=== PATIENT | female | born 1985 | race Hispanic/Latino ===

== ENCOUNTER 2017-04-22 05:39 | Outpatient (CLI) | payer OTHER ==
[~2017-04-22] VITALS: Ht 162.6 cm; Wt 58.2 kg
[~2017-04-22 05:39] MED LIST: BIRTH CONTROL PATCH; IBP600T1 PO; IBUP-1773 PO; PREN-115 PO; PREN1TAB14 PO; PREN1TAB71 PO
== END 2017-04-22 13:01 ==
LOC: PREOP 05:39
PROVIDERS: ATTEND Surgery
DX: Z01.818 Encounter for other preprocedural examination (principal); K62.5 Hemorrhage of anus and rectum; R19.4 Change in bowel habit

== ENCOUNTER 2017-05-31 02:24 | Emergency (ER) | payer OTHER ==
[~2017-05-31] VITALS: Ht 165.1 cm; Wt 58.1 kg
[2017-05-31] MEDS ORDERED: methylPREDNISolone 80 MG/ML (DEPO MEDROL) VIAL IM ONE (03:00)
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
[2017-05-31] MEDS ORDERED: EPIN0.3P3 IJ (03:05)
[2017-05-31] MEDS ORDERED: FAMO-119 PO (03:05)
[2017-05-31] MEDS ORDERED: PRD20T PO (03:05)
[2017-05-31] MEDS ORDERED: predniSONE 20 MG TAB PO ONE (03:15)
[2017-05-31 03:24] VITALS: BP 0/0
== END 2017-05-31 03:24 | disposition home or self-care (01) ==
LOC: EDUNIT# 02:24 → ER 02:26
DX: L50.8 Other urticaria (principal); G43.909 Migraine, unspecified, not intractable, without status migrainosus; F32.9 Major depressive disorder, single episode, unspecified; Z80.59 Family history of malignant neoplasm of other urinary tract organ
CPT/HCPCS: 99283

== ENCOUNTER 2017-07-22 05:34 | Outpatient (CLI) | payer OTHER ==
[~2017-07-22] VITALS: Ht 165.1 cm; Wt 58.1 kg
[~2017-07-22 05:34] MED LIST changes: +EPIN0.3P3 IJ; +FAMO-119 PO; +PRD20T PO
== END 2017-07-22 14:42 ==
LOC: PREOP 05:34
PROVIDERS: ATTEND Surgery
DX: Z01.818 Encounter for other preprocedural examination (principal); K62.5 Hemorrhage of anus and rectum; R19.4 Change in bowel habit; Z80.0 Family history of malignant neoplasm of digestive organs

== ENCOUNTER 2017-07-29 07:39 | Day surgery (SDC) | payer OTHER ==
--- NOTE | 2017-05-16 07:57 | Conscious Sedation/ASA ---
Conscious Sedation Pre-Proced Time Reviewed: 07:57 ASA Class: 2 Airway Mallampati Classification: ([place] appropriate class) I. II. III, IV Lungs Heart ASA score ASA 1: a normal healthy patient ASA 2: a patient with a mild systemic disease (mid diabetes, controlled hypertension, obesity ASA 3: a patient with a severe systemic disease that limits activity (angina , COPD, prior Myocardial infarction) ASA 4: a patient with an incapacitating disease that is a constant threat to life (CHF, renal failure) ASA 5: a moribund patient not expected to survive 24 hrs. (ruptured aneurysm) ASA 6: a declared brain patient whose organs are being harvested. For emergent operations, add the letter E after the classification Grade 1 Sedation Plan: Discussed options with patient/fam Note The patient is an appropriate candidate to undergo the planned procedure, sedation, and anesthesia. The patient immediately re-assessed prior to indication. JANICE HERNÁNDEZ MD May 16, 2017 7:57 am
--- NOTE | 2017-05-16 07:57 | History & Physicial ---
History of Present Illness History of Present Illness Reason for visit/HPI to undergo colonoscopy in view of the change in bowel habits and a family history of colon cancer Date of Admission 05/16/17 Date Seen by Provider: May 16, 2017 Time Seen by Provider: 07:55 I consulted on this patient on 05/16/17 07:54 Attending Physician Janice Hernández MD Admitting Physician Ml German DO Consult Allergies and Home Medications Allergies Coded Allergies: No Known Drug Allergies (Unverified , 04/22/17) Home Medications No Active Prescriptions or Reported Meds Past Wzshnaa-Qjsbmf-Nthwap Hx Patient Social History Marrital Status: Employed/Student: employed Smoking Status: Never a Smoker Recent Hopitalizations: No Immunizations Up To Date Tetanus Booster (TDap): Less than 5yrs Pediatric: No Date of Influenza Vaccine: Mar 10, 2012 Seasonal Allergies Seasonal Allergies: Yes Surgeries No Respiratory No Cardiovascular No Neurological No Reproductive System Hx Reproductive Disorders: No Sexually Transmitted Disease: No HIV/AIDS: No Gastrointestinal Chronic Constipation Musculoskeletal No Endocrine History of Endocrine Disorders: No Cancer No Integumentary History of Skin or Integumenta: No Blood Transfusions Adverse Reaction to a Blood Tr: No Family Medical History Significant Family History: Cancer Family Hx: Diabetes mellitus Maternal grandmother FH: ovarian cancer 19 MOTHER FH: prostate cancer 19 FATHER Constitutional: no symptoms reported EENTM: no symptoms reported Respiratory: no symptoms reported Cardiovascular: no symptoms reported Gastrointestinal: see HPI Genitourinary: no symptoms reported Musculoskeletal: no symptoms reported Skin: no symptoms reported Psychiatric/Neurological: No Symptoms Reported Physical Exam Vital Signs Capillary Refill : General Appearance: No Apparent Distress HEENT: Normal ENT Inspection Neck: Normal Inspection Respiratory: Lungs Clear Cardiovascular: Regular Rate, Rhythm Gastrointestinal: Non Tender, Soft Rectal: Deferred Extremity: Normal Inspection Neurologic/Psychiatric: Alert, Oriented x3 Skin: Warm/Dry Assessment/Plan Assessment and Plan lady with a new change in her bowel habits. Family history of colon cancer in her father. For colonoscopy. Problems: JANICE HERNÁNDEZ MD May 16, 2017 7:57 am
[~2017-07-29] VITALS: Ht 165.1 cm; Wt 58.1 kg
[2017-07-29] MEDS ORDERED: NS IV 500 ML 500 ML IV PRN (07:54)
[2017-07-29] MEDS ORDERED: NS IV 500 ML 500 ML ONE (08:14)
[2017-07-29 08:19] VITALS: BP 109/70
[2017-07-29] MEDS ORDERED: MIDAZOLAM 2 MG/2 ML (VERSED) VIAL ONE ×3 (09:23→09:24)
[2017-07-29] MEDS ORDERED: fentaNYL INJECTION 100 MCG/2 ML AMP ONE (09:24)
--- NOTE | 2017-07-29 09:30 | History & Physicial ---
History of Present Illness History of Present Illness Reason for visit/HPI to undergo colonoscopy in view of the change in bowel habits and a family history of colon cancer Date of Admission 07/29/17 Date Seen by Provider: Jul 29, 2017 Time Seen by Provider: 09:29 I consulted on this patient on 07/29/17 09:28 Attending Physician Janice Loco MD Admitting Physician Mary Beth Victoria MD Consult Allergies and Home Medications Allergies Coded Allergies: No Known Drug Allergies (Unverified , 04/22/17) Home Medications No Active Prescriptions or Reported Meds Past [place]-Nqszdj Hx Patient Social History Marrital Status: Employed/Student: employed Alcohol Use: Denies Use Recreational Drug Use: No Smoking Status: Never a Smoker Recent Foreign Travel: No Contact w/other who traveled: No Recent Hopitalizations: No Immunizations Up To Date Tetanus Booster (TDap): Less than 5yrs Pediatric: No Date of Influenza Vaccine: Mar 10, 2012 Seasonal Allergies Seasonal Allergies: Yes Surgeries No Respiratory No Cardiovascular No Neurological No Headaches /Migraines Reproductive System Hx Reproductive Disorders: No Sexually Transmitted Disease: No HIV/AIDS: No Gastrointestinal Yes (RECTAL BLEEDING) Chronic Constipation Musculoskeletal No Chronic Back Pain Endocrine History of Endocrine Disorders: No HEENT Loss of Vision: Denies Hearing Impairment: Denies Cancer No Psychosocial History of Psychiatric Problem: Yes Behavioral Health Disorders: Depression Integumentary History of Skin or Integumenta: No Skin/Integumentary Disorders: Eczema Blood Transfusions History of Blood Disorders: No Adverse Reaction to a Blood Tr: No Family Medical History Significant Family History: Cancer Family Hx: Diabetes mellitus Maternal grandmother FH: ovarian cancer 19 MOTHER FH: prostate cancer 19 FATHER Constitutional: no symptoms reported EENTM: no symptoms reported Respiratory: no symptoms reported Cardiovascular: no symptoms reported Gastrointestinal: see HPI Genitourinary: no symptoms reported Musculoskeletal: no symptoms reported Skin: no symptoms reported Psychiatric/Neurological: No Symptoms Reported Physical Exam Vital Signs Vital Signs - First Documented 07/29/17 08:19 Temp 97.5 Pulse 68 Resp 18 B/P (MAP) 109/70 (83) Pulse Ox 99 O2 Delivery Room Air Capillary Refill : General Appearance: No Apparent Distress HEENT: Normal ENT Inspection Neck: Normal Inspection Respiratory: Lungs Clear Cardiovascular: Regular Rate, Rhythm Gastrointestinal: Non Tender, Soft Rectal: Deferred Extremity: Normal Inspection Neurologic/Psychiatric: Alert, Oriented x3 Skin: Warm/Dry Assessment/Plan Assessment and Plan lady with a new change in her bowel habits. Family history of colon cancer in her father. For colonoscopy. Problems: Admission Diagnosis lady with a new change in her bowel habits. Family history of colon cancer in her father. For colonoscopy. JANICE LOCO MD Jul 29, 2017 9:30 am
--- NOTE | 2017-07-29 09:30 | Conscious Sedation/ASA ---
Conscious Sedation Pre-Proced Time Reviewed: 09:05 ASA Class: 1 Airway Mallampati Classification: ([place] appropriate class) I. II. III, IV Lungs Heart ASA score ASA 1: a normal healthy patient ASA 2: a patient with a mild systemic disease (mid diabetes, controlled hypertension, obesity ASA 3: a patient with a severe systemic disease that limits activity (angina , COPD, prior Myocardial infarction) ASA 4: a patient with an incapacitating disease that is a constant threat to life (CHF, renal failure) ASA 5: a moribund patient not expected to survive 24 hrs. (ruptured aneurysm) ASA 6: a declared brain patient whose organs are being harvested. For emergent operations, add the letter E after the classification Grade 1 Sedation Plan: Discussed options with patient/fam Note The patient is an appropriate candidate to undergo the planned procedure, sedation, and anesthesia. The patient immediately re-assessed prior to indication. JANICE HERNÁNDEZ MD Jul 29, 2017 9:30 am
[2017-07-29] MEDS: fentaNYL INJECTION 100 MCG/2 ML AMP IVP PRN ×2 (09:33→09:40)
[2017-07-29] MEDS: MIDAZOLAM 2 MG/2 ML (VERSED) VIAL IVP PRN ×3 (09:34→09:43)
--- NOTE | 2017-07-29 09:56 | Endo Procedure Record ---
Endo Procedure Report Date of Procedure Last Colonoscopy: No Jul 29, 2017 Surgeon (s) JANICE HERNÁNDEZ MD Post Procedure/Op Diagnosis Hemorrhoids Procedure Performed Colonoscopy to cecum Description of Procedure Anesthesia Type: Conscious Sedation Specimen(s) collected/removed none Description of the Procedure Indication for the procedure: This lady came in for colonoscopy to investigate rectal bleeding, change in bowel habits and on the basis of a family history of colon cancer. Informed consent was obtained after reviewing the procedure in detail. Description of the procedure: She was placed in left lateral decub disposition and her vital signs were monitored. Conscious sedation was achieved using Versed and fentanyl. Examination of the perianal area revealed external hemorrhoids. Digital examination was otherwise unremarkable. The colonoscope was then introduced into the rectum and advanced all the way up to the cecum The quality of bowel preparation was reasonable The scope was then withdrawn slowly and the mucosa examined in a systematic fashion Finding: Internal hemorrhoids, the source of bleeding. No polyps were found She tolerated the procedure well and was taken back to the nursing area in a stable condition. Impression: Rectal bleeding due to hemorrhoids. Positive family history. Recommend screening colonoscopy in 5 years. Copies To: BHAVESH MAHAN XAVIER M MD Jul 29, 2017 9:56 am
--- NOTE | 2017-07-29 09:57 | Discharge Inst-Simple/Standard ---
Discharge Inst-Standard Discharge Medications New, Converted or Re-Newed RX: Other Patient Instructions/Follow Up Plan of Care/Instructions/FU: Screening colonoscopy in 5 years Activity as Tolerated: Yes Discharge Diet: No Restrictions JANICE HERNÁNDEZ MD Jul 29, 2017 9:57 am
[2017-07-29 10:05] VITALS: BP 116/75
[2017-07-29 10:35] VITALS: BP 106/71
[2017-07-29 10:55] VITALS: BP 106/71
== END 2017-07-29 10:55 | disposition home or self-care (01) ==
LOC: ENDO 07:39
PROVIDERS: ATTEND Surgery
DX: K64.8 Other hemorrhoids (principal); Z80.0 Family history of malignant neoplasm of digestive organs; F32.9 Major depressive disorder, single episode, unspecified
CPT/HCPCS: 84703

== ENCOUNTER 2018-06-23 14:11 | Outpatient (RCR) | payer OTHER | END 2018-09-21 | disposition home or self-care (01) | LOC: ONC 14:11 | PROVIDERS: ATTEND Nurse Practitioner Adult Health | DX: Z13.71 Encounter for nonprocreative screening for genetic disease carrier status (principal); Z80.41 Family history of malignant neoplasm of ovary; Z80.1 Family history of malignant neoplasm of trachea, bronchus and lung; Z80.0 Family history of malignant neoplasm of digestive organs | CPT/HCPCS: 99214 ==

== ENCOUNTER 2018-10-15 09:42 | Outpatient (CLI) | payer OTHER ==
[~2018-10-15] VITALS: Ht 165.1 cm; Wt 62.8 kg
[2018-10-15] MEDS ORDERED: CETI10TA17 PO (09:52)
[2018-10-15 09:54] VITALS: BP 108/72
[2018-10-15 10:48] LABS: BASOPHILS % (AUTO) 0 % (0-10); EOSINOPHILS # (AUTO) 0.1 10^3/uL (0.0-0.3); EOSINOPHILS % (AUTO) 3 % (0-10); HEMATOCRIT 41 % (35-52); HEMOGLOBIN 13.6 G/DL (11.5-16.0); LYMPHOCYTES # (AUTO) 1.7 X 10^3 (1.0-4.0); LYMPHOCYTES % (AUTO) 33 % (12-44); MEAN CORPUSCULAR HEMOGLOBIN 31 PG (25-34); MEAN CORPUSCULAR HGB CONC 33 G/DL (32-36); MEAN CORPUSCULAR VOLUME 92 FL (80-99); MEAN PLATELET VOLUME 9.6 FL (7.4-10.4); MONOCYTES # (AUTO) 0.4 X 10^3 (0.0-1.0); MONOCYTES % (AUTO) 7 % (0-12); NEUTROPHILS # (AUTO) 2.9 X 10^3 (1.8-7.8); NEUTROPHILS % (AUTO) 57 % (42-75); PLATELET COUNT 220 10^3/uL (130-400); RED CELL DISTRIBUTION WIDTH 13.9 % (10.0-14.5); WHITE BLOOD COUNT 5.1 10^3/uL (4.3-11.0)
== END 2018-10-15 12:43 | disposition home or self-care (01) ==
LOC: PREOP 09:42
PROVIDERS: ATTEND Obstetrics & Gynecology
DX: Z01.812 Encounter for preprocedural laboratory examination (principal); Z11.2 Encounter for screening for other bacterial diseases; N93.8 Other specified abnormal uterine and vaginal bleeding; N92.0 Excessive and frequent menstruation with regular cycle; R10.2 Pelvic and perineal pain; D64.9 Anemia, unspecified
CPT/HCPCS: 36415; 85025; 86850; 86900; 86901; 87081

== ENCOUNTER 2018-10-20 11:20 | Day surgery (SDC) | payer OTHER ==
[2018-10-20] VITALS (12 sets, daily range): BP systolic 85–129; BP diastolic 51–90
[~2018-10-20] VITALS: Ht 165.1 cm; Wt 62.8 kg
--- NOTE | 2018-10-20 07:41 | Discharge Instructions ---
Discharge Instructions Discharge Medications New, Converted or Re-Newed RX: RX on Chart Patient Instructions Patient Instructions: As directed Return to The Hospital For: As directed Activity & Diet Discharge Diet: No Restrictions Activity as Tolerated: No Orders-Post D/C & Referrals Follow Up Appt: Return to clinic on Saturday, October 22, 2018 at 930 a.m. for staple removal Call to make follow up appt. for patient in 4 weeks. Activity: Rest for 24 hours, than as tolerated. Wound Care: May remove Band-Aid tomorrow. Replace as desired. Keep incisions clean and dry. Wash daily with soap and water. Please call in RX to patient pharmacy. Diet: As tolerated-Clear Liquids only if nauseated. may shower or tub bathe as desired. No driving for 24 hours, no alcoholic beverages for 24 hours, and nothing per vagina (no tampons, douching, or intercourse) for 8 weeks. Patient to return to the clinic as soon as possible for: Temperature greater than 101F, Severe Pain, Foul discharge from incision or vagina, Excessive Bleeding (more than a period). JOVANNI BRITO MD October 20, 2018 07:40
--- NOTE | 2018-10-20 07:41 | Progress Note-Pre Operative ---
Pre-Operative Progress Note H&P Reviewed The H&P was reviewed, patient examined and no changes noted. Date Seen by Provider: October 20, 2018 Time Seen by Provider: 12:15 Date H&P Reviewed: October 20, 2018 Time H&P Reviewed: 12:15 Pre-Operative Diagnosis: Dysfunctional uterine bleeding/menorrhagia/chronic pelvic pain JOVANNI BRITO MD October 20, 2018 07:41
--- NOTE | 2018-10-20 07:42 | Progress Note-Post Operative ---
Post-Operative Progess Note Surgeon (s)/Conveyor Belt Operator (s) Surgeon JOVANNI BRITO MD Conveyor Belt Operator: Piero Pre-Operative Diagnosis Dysfunctional uterine bleeding/menorrhagia/chronic pelvic pain Post-Operative Diagnosis Same with pathology pending Procedure & Operative Findings Date of Procedure 10/20/18 Procedure Performed/Findings Total laparoscopic hysterectomy with bilateral salpingectomy Anesthesia Type GETA Estimated Blood Loss Estimated blood loss (mL): min Specimens/Packing Specimens Removed Uterus and fallopian tubes Packing: None JOVANNI BRITO MD October 20, 2018 07:42
[~2018-10-20 11:20] MED LIST changes: +CETI10TA17 PO; +DOCU-143 PO; +IBUP-1780 PO; +OXYC1TAB87 PO
[2018-10-20] MEDS ORDERED: fentaNYL INJECTION 100 MCG/2 ML AMP ONE (11:39)
[2018-10-20] MEDS: LACTATED RINGERS 1,000 ML IV PRN ×2 (11:40→12:45)
[2018-10-20] MEDS ORDERED: MIDAZOLAM 2 MG/2 ML (VERSED) VIAL IV ONE (11:45)
[2018-10-20] MEDS ORDERED: ceFAZolin INJECTION 1,000 MG ONE (11:52)
[2018-10-20] MEDS ORDERED: BUP/EPI 0.25% 1:200,000 (MARCAINE) 10 ML VIAL IJ ONE (12:18)
[2018-10-20] MEDS ORDERED: ONDANSETRON 4 MG/2 ML (SDV) Z0FRAN ONE (12:54)
[2018-10-20] MEDS ORDERED: SEVOFLURANE (ULTANE) 15 ML INHAL SOLN ONE ×7 (12:54→13:55)
[2018-10-20] MEDS ORDERED: ROCURONIUM 10 MG/ML 5 ML SYRINGE IV ONE (12:54)
[2018-10-20] MEDS ORDERED: proPOfol 200 MG/20 ML (DIPRIVAN) VIAL IV ONE (12:54)
[2018-10-20] MEDS ORDERED: LIDOCAINE PF 2% 5 ML (XYLOCAINE) VIAL ONE (12:54)
[2018-10-20] MEDS ORDERED: PROMETHAZINE INJ 25 MG/ML (PHENERGAN) AMP IM PRN (13:30)
[2018-10-20] MEDS ORDERED: ONDANSETRON 4 MG/2 ML (SDV) Z0FRAN IVP PRN ×2 (13:30→14:15)
[2018-10-20] MEDS ORDERED: MEPERIDINE (DEMEROL) INJ 100 MG/ML IM PRN (13:30)
[2018-10-20] MEDS ORDERED: ceFAZolin INJECTION 1,000 MG in WATER (STERILE) FOR INJECTION 10 ML IV ONE (13:30)
[2018-10-20] MEDS ORDERED: LACTATED RINGERS 1,000 ML IV ONE (13:52)
[2018-10-20] MEDS ORDERED: fentaNYL INJECTION 100 MCG/2 ML AMP IVP ONE (14:15)
[2018-10-20] MEDS ORDERED: morphine INJ 10 MG/ML 1ML (SYR OR VIAL) IVP ONE (14:15)
[2018-10-20] MEDS ORDERED: MEPERIDINE (DEMEROL) INJ 50 MG/ML IVP ONE (14:15)
[2018-10-20] MEDS: KETOROLAC 30 MG/ML VIAL IVP SCH ×2 (14:25→20:07)
--- NOTE | 2018-10-20 15:10 | NUR ---
KERRI OSCAR presented to unit via BED from [facility], accompanied by Marcos CALDWELL, RN AND Holland BROCK, RN FOLLOWING A ROBOTIC HYSTERECTOMY. VS taken. REPORT RECEIVED.
--- NOTE | 2018-10-20 15:49 | NUR ---
Credit CoachSAUCE DELIVERED TO ROOM PER ROOM SERVICE.
[2018-10-20] MEDS: oxyCODONE/APAP 5/325MG (PERCOCET 5) TABLET PO PRN ×2 (16:26→17:17)
[2018-10-20] MEDS: D5 LR IV SOLUTION 1,000 ML IV SCH ×2 (16:26→23:42)
--- NOTE | 2018-10-20 16:26 | NUR ---
PT WAS ABLE TO EAT SOME APPLESAUCE. SALTINE CRACKERS PLACED AT PT'S BEDSIDE. (1) PERCOCET GIVEN PO; SEE EMAR FOR FURTHER. RT TO PT'S BEDSIDE TO INITIATE INCENTIVE SPIROMETRY.
--- NOTE | 2018-10-20 17:17 | NUR ---
(1) PERCOCET GIVEN PO; SEE EMAR FOR FURTHER PER PT REQUEST. VISITORS, FAMILY AND S/O AT THE BEDSIDE.
--- NOTE | 2018-10-20 17:42 | NUR ---
PT RESTING. PT VOICED THAT PERCOCET PILLS WEREN'T WORKING FOR HER CURRENT PAIN, DEMEROL AND PHENERGAN GIVEN IM; SEE EMAR FOR FURTHER. PT'S SISTER PLANS ON STAYING THE NIGHT, LINENS PROVIDED. S/O AND FAMILY BACK TO PT'S BEDSIDE.
--- NOTE | 2018-10-20 19:17 | NUR ---
DR. BRITO CALLED UNIT, UPDATE GIVEN. NO NEW ORDERS RECEIVED.
--- NOTE | 2018-10-20 22:00 | NUR ---
Pt resting with eyes closed, aroused easily per calling name, denies needs at this time. sister remains at bedside.
--- NOTE | 2018-10-20 23:30 | NUR ---
Pt sitting up in bed, awake and alert, denies pain. pt requesting sprite. Sister remains at bedside.
--- NOTE | 2018-10-21 00:56 | OPERATIVE REPORT ---
DATE OF SERVICE: 10/20/2018 PREOPERATIVE DIAGNOSES: Dysfunctional uterine bleeding, menorrhagia and pelvic pain. POSTOPERATIVE DIAGNOSES: Dysfunctional uterine bleeding, menorrhagia and pelvic pain with left ovarian cyst and endometriosis. OPERATIVE PROCEDURES: Total laparoscopic hysterectomy with bilateral salpingectomies and drainage of left ovarian cyst. OPERATIVE DESCRIPTION: With the patient in the supine position under satisfactory general anesthesia, she was repositioned in the dorsal lithotomy position in the [facility] and prepped and draped in the usual fashion for abdominal and vaginal surgery using the da Marce equipment. Weighted speculum placed in posterior fornix of vagina, cervix exposed and grasped anteriorly with single tooth tenaculum. Uterus sounded to 9.5 cm with uterine sound. The cervix was then serially dilated with Shiraz dilators to accommodate a Bethany II manipulator, which was used placed using a 6 mm x 8 cm uterine probe and a 30 mm colpotomy ring. Sutures of #1 Vicryl placed at 3 and 9 o'clock position of the cervix to affix the uterus to the manipulator. The patient was brought in low dorsal lithotomy position after placing Carcamo catheter in the urinary bladder. A 12 mm incision was made 3 cm superior to the umbilicus. Veress needle was placed through the stab wound in the base of the umbilicus. Veress needle placement was confirmed with a water drop test and the abdomen was insufflated with 2.4 liters of carbon dioxide. Veress needle was removed and a 12 mm Optiview laparoscopic port placed through the upper abdominal midline incision. The abdominal wall was transilluminated and ports of 8 mm were placed through incisions of those sizes 8 cm lateral to the umbilicus at the level of the umbilicus. All incision sites were infiltrated with 0.25% Marcaine with epinephrine prior to the incision and port placement. The patient was now placed in Trendelenburg allowing the bowel to spill out of the pelvis. The da Marce column was advanced on the patient and docked and then operative instruments were placed in the right and left lateral ports and I retired to the [employer] Marce console for the procedure. Using a vessel sealer on the right and a bipolar fenestrated grasper on the left, the pelvis was first examined. There were some adhesions of the sigmoid to the left pelvic side wall and left IP ligament. These were taken free to allow complete access to the left pelvis. Both ovaries appeared normal. There was a large simple cyst involving the left ovary. There were numerous paratubal cysts bilaterally. The uterus was quite mottled in appearance consistent with adenomyosis and there with evidence of endometriosis on the uterus and in the ovarian fossa. The laparoscope was rotated. The appendix was identified. It was a normal vermiform appendix. Laparoscope was brought back to the pelvis. The right fallopian tube was grasped and elevated. The mesosalpinx was clamped, cauterized and divided. This continued stepwise across the mesosalpinx to the utero-ovarian pedicle, which was clamped, cauterized and divided as well. Then, the process was continued across the round ligament, across the broad ligament and down onto the cardinal ligament. Same procedure performed on the left, allowing for conservation of both ovaries and removal of both fallopian tubes. The anterior lower uterine segment peritoneum was now divided and the bladder dissected down off lower uterine segment. Colpotomy incision was started at the 12 o'clock position on the cervix. A colpotomy incision was continued circumferentially until the entire colpotomy ring was exposed. This allowed removal of the uterus with tubes still attached through the vagina. The vaginal cuff was closed with running suture of V-Loc barbed sutures using two sutures starting first from the right angle and continuing almost all the way across the cuff and then completing the left angle of the balance of the cuff and then supporting the left ovary up on the stump of the round ligament on the left to support of by the pelvis. The right ovary was well suspended already. Suture was cut short and both needles had been removed from the abdomen on completion of the suturing. There was no bleeding. There was no significant abnormal remaining pathology. Both ureters were seemed to peristalse and were normal in caliber. There were well away from the areas of dissection and surgical manipulation. With the procedure complete and no bleeding, the procedure was terminated. The operative instruments were removed under direct vision as were the ports. The patient was brought out of Trendelenburg allowing the bowel was returned to the pelvis. The abdomen was evacuated and insufflating gas in the process of removing the ports. The skin incisions were stapled. The fascia at the supraumbilical incision was closed with [id number] suture of 2-0 Vicryl. Weighted speculum was placed in the vagina. The vaginal cuff was examined for hemostasis and complete reapproximation, which was complete. Sponge and needle counts were correct on completion of procedure. Estimated blood loss was minimal. The patient tolerated the procedure well and was transferred to the recovery room in stable condition. 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
--- NOTE | 2018-10-21 02:00 | NUR ---
Pt sitting up in bed awake and alert watching tv, denies pain at this time.
[2018-10-21] MEDS: KETOROLAC 30 MG/ML VIAL IVP SCH ×2 (02:35→08:48)
[2018-10-21 04:30] VITALS: BP 97/53
--- NOTE | 2018-10-21 07:42 | Progress Note-Standard ---
Standard Progress Note Progress Notes/Assess & Plan Date Seen by a Provider: October 21, 2018 Time Seen by a Provider: 07:41 Progress/Assessment & Plan This patient is without complaint. She is ambulating, tolerating oral intake well and has good pain control. Her Carcamo catheter has been removed just recently she has not voided yet. Patient denies headache, denies shortness of breath, denies nausea vomiting, and denies chest pain. Vital Signs Date Time Temp Pulse Resp B/P (MAP) Pulse Ox O2 Delivery O2 Flow Rate FiO2 10/21/18 04:30 98.9 64 18 97/53 (68) 96 Room Air 10/20/18 23:30 98.6 67 18 98/51 (67) 98 Room Air 10/20/18 20:10 99.0 64 16 85/51 (62) 95 Room Air 10/20/18 17:33 99.2 55 18 127/81 (96) 100 Room Air 10/20/18 15:10 97.7 12 100 Room Air 10/20/18 15:09 98.9 46 16 129/67 (87) 100 Room Air 10/20/18 15:00 12 100 Room Air 10/20/18 14:50 14 100 Room Air 10/20/18 14:40 14 100 OxyMask 2 10/20/18 14:30 12 100 OxyMask 4 10/20/18 14:20 12 100 OxyMask 10 10/20/18 14:10 97.5 16 100 OxyMask 10 10/20/18 11:40 97.2 50 16 109/66 (80) 100 Room Air I & O 10/21/18 07:00 Intake Total 3410 ml Output Total 755 ml Balance 2655 ml Vital signs are stable. Patient is afebrile. The abdomen is benign. The surgical incisions are clean and the dressings are intact. Extremities show no clubbing or cyanosis. There is no Homans sign. Assessment and plan postoperative day number 1 doing well. Plan is for discharge home with follow-up in clinic Final Diagnosis DUB/menorrhagia JOVANNI BRITO MD October 21, 2018 07:42
--- NOTE | 2018-10-21 07:50 | NUR ---
UP TO THE BATHROOM. UNABLE TO VOID AT THIS TIME. ASSESSMENT COMPLETED. VSS. OUT TO AMBULATE IN THE JAIN WITH S.O. MOVES WELL.
[2018-10-21 08:00] VITALS: BP 106/58
--- NOTE | 2018-10-21 08:15 | NUR ---
VOIDED. DOING WELL. PLAN FOR DISCHARGE.
[2018-10-21] MEDS ORDERED: DOCUSATE SODIUM 100 MG (COLACE) CAP PO SCH (09:00)
--- NOTE | 2018-10-21 09:30 | NUR ---
AMBULATED DOWNSTAIRS WITH SPOUSE.
--- NOTE | 2018-10-21 10:03 | Anesthesia-General Post-Op ---
General Patient Condition Mental Status/LOC: Same as Preop Cardiovascular: Satisfactory Nausea/Vomiting: Absent Respiratory: Satisfactory Pain: Controlled Complications: Absent Post Op Complications Complications None Follow Up Care/Instructions Patient Instructions None needed. Anesthesia/Patient Condition Patient Condition Patient is doing well, no complaints, stable vital signs, no apparent adverse anesthesia problems. No complications reported per nursing. ADRAYN ZHENG CRNA October 21, 2018 10:03
[2018-10-21 10:05] VITALS: BP 106/58
--- NOTE | 2018-10-21 10:05 | NUR ---
DISMISSED AMB FROM [facility] IN STABLE CONDITION TO [facility] BY MORENITA SIDDIQUI.
[2018-10-21] MEDS ORDERED: IBUPROFEN 800 MG (MOTRIN) TAB PO SCH (13:30)
== END 2018-10-21 10:05 | disposition home or self-care (01) ==
LOC: SDC 11:20 → WS 15:10 → SDC 10-21 10:05
PROVIDERS: ATTEND Obstetrics & Gynecology
DX: N93.8 Other specified abnormal uterine and vaginal bleeding (principal); N72 Inflammatory disease of cervix uteri; N83.8 Other noninflammatory disorders of ovary, fallopian tube and broad ligament; N92.0 Excessive and frequent menstruation with regular cycle; N83.202 Unspecified ovarian cyst, left side; F43.10 Post-traumatic stress disorder, unspecified; Z79.899 Other long term (current) drug therapy
CPT/HCPCS: 36415; 86850; 86900; 86901; 88307; 94664

== ENCOUNTER 2019-04-16 18:49 | Emergency (ER) | payer BC, OTHER ==
[~2019-04-16] VITALS: Ht 162 cm; Wt 58.9 kg
--- NOTE | 2019-04-16 20:33 | ED GI ---
General Chief Complaint: Abdominal/GI Problems Stated Complaint: BLOOD IN STOOL Nursing Triage Note: c/o abd pain nausea and blood in stool since last saturday. 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 patient states the blood continues and is dripping even when stool is not passed. Sepsis Screen: No Definite Risk Source of Information: Patient Exam Limitations: No Limitations History of Present Illness Date Seen by Provider: Apr 16, 2019 Time Seen by Provider: 20:33 Allergies and Home Medications Allergies Coded Allergies: No Known Drug Allergies (Unverified , 10/15/18) Home Medications Cetirizine HCl 10 Mg Tablet, 10 MG PO DAILY, (Reported) Docusate Sodium 100 Mg Capsule, 100 MG PO BID Prescribed by: JOVANNI MASTERS on 10/20/18 0739 Ibuprofen 800 Mg Tablet, 800 MG PO Q6H PRN for PAIN Prescribed by: JOVANNI MASTERS on 10/20/18 0739 Oxycodone HCl/Acetaminophen 1 Each Tablet, 1 TAB PO Q4H Prescribed by: JOVANNI MASTERS on 10/20/18 0739 Past Nqiajah-Mpptef-Imrchl Hx Patient Social History Alcohol Use: Occasionally Uses Recreational Drug Use: No 2nd Hand Smoke Exposure: No Recent Foreign Travel: No Contact w/Someone Who Travel: No Recent Infectious Disease Expo: No Recent Hopitalizations: No Physical Abuse: No Sexual Abuse: No Mistreated: No Fear: No Immunizations Up To Date Tetanus Booster (TDap): Less than 5yrs PED Vaccines UTD: No Date of Influenza Vaccine: Mar 17, 2018 Seasonal Allergies Seasonal Allergies: Yes Past Medical History Surgeries: Yes (BREAST AUGMENTATION) Hysterectomy Respiratory: No Cardiac: No Neurological: Yes Headaches /Migraines Reproductive Disorders: No Female Reproductive Disorders: Menstrual Problems, Endometriosis, 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 Sexually Transmitted Disease: No HIV/AIDS: No Genitourinary: No Gastrointestinal: No (has had colonoscopy r/t family hx of colon ca, sx of blood in stool) Chronic Constipation Musculoskeletal: No Chronic Back Pain Endocrine: No HEENT: Yes Loss of Vision: Denies Hearing Impairment: Denies Cancer: No Psychosocial: Yes Anxiety, Depression Integumentary: Yes Eczema Blood Disorders: No Adverse Reaction/Blood Tranf: No (N/A) Family Medical History Diabetes mellitus Maternal grandmother FH: ovarian cancer 19 MOTHER FH: prostate cancer 19 FATHER Cancer Physical Exam Vital Signs Vital Signs - First Documented 04/16/19 19:12 Temp 36.0 Pulse 65 Resp 18 B/P (MAP) 121/84 (96) Pulse Ox 100 Capillary Refill : Less Than 3 Seconds Height/Weight/BMI Height: 5'5.00" Weight: 138lbs. 7.0oz. 62.253964ux; 22.00 BMI Method:Stated Progress/Results/Core Measures Results/Orders Lab Results Laboratory Tests Test 04/16/19 19:48 Range/Units White Blood Count 7.3 4.3-11.0 10^3/uL Red Blood Count 4.08 L 4.35-5.85 10^6/uL Hemoglobin 12.4 11.5-16.0 G/DL Hematocrit 37 35-52 % Mean Corpuscular Volume 90 80-99 FL Mean Corpuscular Hemoglobin 30 25-34 PG Mean Corpuscular Hemoglobin Concent 34 32-36 G/DL Red Cell Distribution Width 12.7 10.0-14.5 % Platelet Count 264 130-400 10^3/uL Mean Platelet Volume 9.3 7.4-10.4 FL Neutrophils (%) (Auto) 49 42-75 % Lymphocytes (%) (Auto) 39 12-44 % Monocytes (%) (Auto) 8 0-12 % Eosinophils (%) (Auto) 4 0-10 % Basophils (%) (Auto) 0 0-10 % Neutrophils # (Auto) 3.6 1.8-7.8 X 10^3 Lymphocytes # (Auto) 2.9 1.0-4.0 X 10^3 Monocytes # (Auto) 0.6 0.0-1.0 X 10^3 Eosinophils # (Auto) 0.3 0.0-0.3 10^3/uL Basophils # (Auto) 0.0 0.0-0.1 10^3/uL Prothrombin Time 14.5 12.2-14.7 SEC INR Comment 1.1 0.8-1.4 Activated Partial Thromboplast Time 33 24-35 SEC Urine Color YELLOW Urine Clarity CLEAR Urine pH 7.5 5-9 Urine Specific [place] 1.010 L 1.016-1.022 Urine Protein NEGATIVE NEGATIVE Urine Glucose (UA) NEGATIVE NEGATIVE Urine Ketones NEGATIVE NEGATIVE Urine Nitrite NEGATIVE NEGATIVE Urine Bilirubin NEGATIVE NEGATIVE Urine Urobilinogen 0.2 < = 1.0 MG/DL Urine Leukocyte Esterase NEGATIVE NEGATIVE Urine RBC (Auto) NEGATIVE NEGATIVE Urine RBC NONE /HPF Urine WBC 2-5 /HPF Urine Squamous Epithelial Cells 2-5 /HPF Urine Crystals NONE /LPF Urine Bacteria MODERATE H /HPF Urine Casts NONE /LPF Urine Mucus NEGATIVE /LPF Urine Culture Indicated YES Sodium Level 140 135-145 MMOL/L Potassium Level 3.6 3.6-5.0 MMOL/L Chloride Level 105 98-107 MMOL/L Carbon Dioxide Level 26 21-32 MMOL/L Anion Gap 9 5-14 MMOL/L Blood Urea Nitrogen 11 7-18 MG/DL Creatinine 0.82 0.60-1.30 MG/DL Estimat Glomerular Filtration Rate > 60 BUN/Creatinine Ratio 13 Glucose Level 96 70-105 MG/DL Calcium Level 8.6 8.5-10.1 MG/DL Corrected Calcium 8.7 8.5-10.1 MG/DL Total Bilirubin 0.2 0.1-1.0 MG/DL Aspartate Amino Transf (AST/SGOT) 19 5-34 U/L Alanine Aminotransferase (ALT/SGPT) 17 0-55 U/L Alkaline Phosphatase 47 40-136 U/L C-Reactive Protein High Sensitivity 0.05 0.00-0.50 MG/DL Total Protein 6.3 L 6.4-8.2 GM/DL Albumin 3.9 3.2-4.5 GM/DL Lipase 30 8-78 U/L GERALDO Caro Ed Iv/Invasive Line Start (04/16/19 20:47) Ct Abdomen/Pelvis W (04/16/19 20:47) Cbc With Automated Diff (04/16/19 20:47) Comprehensive Metabolic Panel (04/16/19 20:47) Hs C Reactive Protein (04/16/19 20:47) Lipase (04/16/19 20:47) Protime With Inr (04/16/19 20:47) Partial Thromboplastin Time (04/16/19 20:47) Ua Culture If Indicated (04/16/19 20:47) Ns Iv 1000 Ml (Sodium Chloride 0.9%) (04/16/19 20:47) Iohexol Injection (Omnipaque 350 Mg/Ml 1 (04/16/19 21:00) Received Contrast (Hold Metformin- Contr (04/16/19 21:00) Ns (Ivpb) (Sodium Chloride 0.9% Ivpb Bag (04/16/19 21:00) Urine Culture (04/16/19 19:48) Cefdinir Capsule (Omnicef Capsule) (04/16/19 22:30) Medications Given in ED Current Medications Medications Dose Ordered Sig/Julian Route Start Time Stop Time Status Last Admin Dose Admin Iohexol 100 ml ONCE ONCE IV 04/16/19 21:00 04/16/19 21:01 DC 04/16/19 21:16 74 ML Sodium Chloride 100 ml ONCE ONCE IV 04/16/19 21:00 04/16/19 21:01 DC 04/16/19 21:16 80 ML Sodium Chloride 1,000 ml @ 0 mls/hr Q0M ONCE IV 04/16/19 20:47 04/16/19 20:48 DC 04/16/19 20:52 1,000 MLS/HR Vital Signs/I&O 04/16/19 19:12 Temp 36.0 Pulse 65 Resp 18 B/P (MAP) 121/84 (96) Pulse Ox 100 2 Blood Pressure Mean: 96 POS Departure Impression Primary Impression: Rectal bleeding Additional Impression: Urinary tract infection Disposition: HOME, SELF-CARE Condition: Improved Departure-Patient Inst. Decision time for Depature: 22:26 Referrals: SHALONDA MAURER MD (PCP) Primary Care Physician BRANDON COPELAND MD Patient Instructions: Bloody Stools, Adult (DC), Urinary Tract Infection, Adult (DC) Add. Discharge Instructions: All discharge instructions reviewed with patient and/or family. Voiced understa nding. Medications as instructed. Follow-up with Dr. COPELAND Saturday as previously scheduled. Return to the emergency department for worsened symptoms, dizziness, chest pain, shortness of air, or any other concerns. Scripts Cefdinir (Cefdinir) 300 Mg Capsule 300 MG PO BID, #14 CAP 0 Refills Prov: GERALDO NEWBERRY 04/16/19 GERALDO NEWBERRY Apr 16, 2019 20:33 POS
[2019-04-16] MEDS ORDERED: NS IV 1000 ML 1,000 ML IV ONE (20:47)
[2019-04-16 20:53] LABS: BASOPHILS % (AUTO) 0 % (0-10); EOSINOPHILS # (AUTO) 0.3 10^3/uL (0.0-0.3); EOSINOPHILS % (AUTO) 4 % (0-10); HEMATOCRIT 37 % (35-52); HEMOGLOBIN 12.4 G/DL (11.5-16.0); LYMPHOCYTES # (AUTO) 2.9 X 10^3 (1.0-4.0); LYMPHOCYTES % (AUTO) 39 % (12-44); MEAN CORPUSCULAR HEMOGLOBIN 30 PG (25-34); MEAN CORPUSCULAR HGB CONC 34 G/DL (32-36); MEAN CORPUSCULAR VOLUME 90 FL (80-99); MEAN PLATELET VOLUME 9.3 FL (7.4-10.4); MONOCYTES # (AUTO) 0.6 X 10^3 (0.0-1.0); MONOCYTES % (AUTO) 8 % (0-12); NEUTROPHILS # (AUTO) 3.6 X 10^3 (1.8-7.8); NEUTROPHILS % (AUTO) 49 % (42-75); PLATELET COUNT 264 10^3/uL (130-400); RED CELL DISTRIBUTION WIDTH 12.7 % (10.0-14.5); WHITE BLOOD COUNT 7.3 10^3/uL (4.3-11.0)
[2019-04-16 20:59] LABS: INR 1.1 (0.8-1.4); PROTHROMBIN TIME PATIENT 14.5 SEC (12.2-14.7)
[2019-04-16] MEDS ORDERED: HOLD METFORMIN - RECEIVED CONTRAST 20 ML VIAL IV SCH (21:00)
[2019-04-16] MEDS ORDERED: NS 100 ML (IVPB) BAG IV ONE (21:00)
[2019-04-16] MEDS ORDERED: IOHEXOL 350 MG/ML 100 ML (OMNIPAQUE 350) VIAL IV ONE (21:00)
[2019-04-16 21:01] LABS: BILIRUBIN,URINE NEGATIVE (NEGATIVE); CLARITY,URINE CLEAR; COLOR,URINE YELLOW; GLUCOSE, URINE (UA) NEGATIVE (NEGATIVE); KETONES,URINE NEGATIVE (NEGATIVE); LEUKOCYTE ESTERASE ,URINE NEGATIVE (NEGATIVE); NITRITE,URINE NEGATIVE (NEGATIVE); PH,URINE 7.5 (5-9); PROTEIN,URINE NEGATIVE (NEGATIVE)
[2019-04-16 21:06] LABS: ALANINE AMINOTRANSFERASE 17 U/L (0-55); ALBUMIN 3.9 GM/DL (3.2-4.5); ALKALINE PHOSPHATASE 47 U/L (40-136); BILIRUBIN,TOTAL 0.2 MG/DL (0.1-1.0); BUN/CREATININE RATIO 13; CALCIUM 8.6 MG/DL (8.5-10.1); CARBON DIOXIDE 26 MMOL/L (21-32); CHLORIDE 105 MMOL/L (98-107); CREATININE SERUM 0.82 MG/DL (0.60-1.30); GFR ESTIMATED > 60; GLUCOSE 96 MG/DL (70-105); LIPASE 30 U/L (8-78); POTASSIUM 3.6 MMOL/L (3.6-5.0); SODIUM 140 MMOL/L (135-145); TOTAL PROTEIN 6.3 GM/DL (6.4-8.2)
[2019-04-16 21:30] LABS: BACTERIA,URINE MODERATE /HPF
--- NOTE | 2019-04-16 21:35 | Diagnostic Imaging Report ---
EXAMINATION: CT Abdomen and Pelvis with intravenous contrast. TECHNIQUE: Multiple contiguous axial images were obtained through the abdomen and pelvis after the uneventful administration of intravenous contrast. All CT scans use one or more of the following dose optimizing techniques: automated exposure control, MA and/or KvP adjustment based on a patient size and exam type, or iterative reconstruction. HISTORY: Rectal bleeding COMPARISON: None available. FINDINGS: Limited views of the lower thorax are unremarkable. The liver is normal without focal lesion. There is no biliary ductal dilation. Gallbladder is not seen. Pancreas is normal. Spleen is normal. Adrenal glands are normal. The kidneys are normal with the exception of a left-sided cyst. There is no hydronephrosis. Urinary bladder is normal. There are no dilated loops of large or small bowel. No obstruction or inflammation. No free fluid or air. No abdominal or pelvic lymphadenopathy. Aorta is normal in caliber without aneurysm. There are no suspicious osseus lesions. IMPRESSION: 1. No acute abnormality in the abdomen or pelvis. Dictated by: Dictated on workstation # [id number]
[2019-04-16] MEDS ORDERED: CEFD300C3 PO (22:26)
[2019-04-16] MEDS ORDERED: CEFDINIR 300 MG (OMNICEF) CAP PO ONE (22:30)
[2019-04-16 22:31] VITALS: BP 118/71
== END 2019-04-16 22:34 | disposition home or self-care (01) ==
LOC: EDUNIT# 18:49 → ER 18:50
DX: K62.5 Hemorrhage of anus and rectum (principal); N39.0 Urinary tract infection, site not specified; G43.909 Migraine, unspecified, not intractable, without status migrainosus; F41.9 Anxiety disorder, unspecified; F32.9 Major depressive disorder, single episode, unspecified; Z90.710 Acquired absence of both cervix and uterus; Z80.0 Family history of malignant neoplasm of digestive organs; Z80.42 Family history of malignant neoplasm of prostate; Z80.8 Family history of malignant neoplasm of other organs or systems
CPT/HCPCS: 36415; 74177; 80053; 81000; 83690; 85025; 85610; 85730; 86141; 87088

== ENCOUNTER 2023-04-07 18:37 | Emergency (ER) | payer BC, OTHER ==
[~2023-04-07] VITALS: Ht 165.1 cm; Wt 63.5 kg
[~2023-04-07 18:37] MED LIST changes: +CEFD300C3 PO
--- NOTE | 2023-04-07 18:54 | ED Chest Pain ---
General Chief Complaint: Chest Pain Stated Complaint: CHEST PAIN Source: patient Exam Limitations: no limitations (PARIS THOMAS) History of Present Illness Date Seen by Provider: Apr 07, 2023 Time Seen by Provider: 18:51 Initial Comments Patient is a 38-year-old female who presents to the ED for chest pain. She had an episode of chest pain yesterday while in [place]. Pain located left-sided chest felt a pressure lasted for 1 to 2 minutes. She had associated shortness of breath and a sharp pain down her left arm. She did not sleep well last night. She went to [employer] started having similar type pain that lasted 1 to 2 minutes. Patient immediately came to ER. Recent travel to [place]. Not currently on control. Denies any leg pain or leg swelling. Denies history of hypertension, diabetes, high cholesterol or smoking. Family cardiac history. Denies taking anything for pain. Patient denies fever, cough, short ness of breath, headache, dizziness, visual changes. (PARIS THOMAS) Allergies and Home Medications Allergies Coded Allergies: No Known Drug Allergies (Unverified , 10/15/18) Patient Home Medication List Home Medication List Reviewed: Yes (PARIS THOMAS) Cefdinir (Cefdinir) 300 Mg Capsule, 300 MG PO BID Prescribed by: GERALDO NEWBERRY on 04/16/192225 Cetirizine HCl (Cetirizine HCl) 10 Mg Tablet, 10 MG PO DAILY, (Reported) Entered as Reported by: CAYLA JOHN on 10/15/18951 Docusate Sodium (Colace) 100 Mg Capsule, 100 MG PO BID Prescribed by: JOVANNI MASTERS on 10/20/18 0739 Ibuprofen (Ibuprofen) 800 Mg Tablet, 800 MG PO Q6H PRN for PAIN Prescribed by: JOVANNI MASTERS on 10/20/18 0739 Oxycodone HCl/Acetaminophen (Percocet 5-325 mg Tablet) 1 Each Tablet, 1 TAB PO Q4H Prescribed by: JOVANNI MASTERS on 10/20/18 0739 Review of Systems Review of Systems Constitutional: No chills, No diaphoresis, No malaise, No weakness EENTM: No Blurred Vision, No Double Vision, No Eye Pain Respiratory: Denies Cough, Denies Orthopnea; Shortness of Air Cardiovascular: Chest Pain Gastrointestinal: Denies Abdominal Pain, Denies Diarrhea, Denies Nausea, Denies Vomiting Genitourinary: Denies Burning, Denies Discharge, Denies Drainage, Denies Frequency Musculoskeletal: No back pain, No joint pain, No joint swelling Skin: No change in color, No change in hair/nails Psychiatric/Neurological: Denies Anxiety, Denies Depressed (PARIS THOMAS) All Other Systems Reviewed Negative Unless Noted: Yes (PARIS THOMAS) Past Umnlpsm-[id number] Hx Immunizations Up To Date Tetanus Booster (TDap): Less than 5yrs PED Vaccines UTD: No (PARIS THOMAS) Seasonal Allergies Seasonal Allergies: Yes (PARIS THOMAS) Past Medical History Surgeries: Yes (BREAST AUGMENTATION) Hysterectomy Respiratory: No Cardiac: No Neurological: Yes Headaches /Migraines Reproductive Disorders: No Female Reproductive Disorders: Menstrual Problems, Endometriosis, Ovarian Cyst [employer] History: Hysterectomy Sexually Transmitted Disease: No HIV/AIDS: No Genitourinary: No Gastrointestinal: Yes (has had colonoscopy r/t family hx of colon ca, sx of blood in stool) Chronic Constipation, Hemorrhoids Musculoskeletal: No Chronic Back Pain Endocrine: No HEENT: Yes Loss of Vision: Denies Hearing Impairment: Denies Cancer: No Psychosocial: Yes Anxiety, Depression Integumentary: Yes Eczema Blood Disorders: No Adverse Reaction/Blood Tranf: No (N/A) (PARIS THOMAS) Family Medical History Diabetes mellitus Maternal grandmother FH: ovarian cancer 19 MOTHER FH: prostate cancer 19 FATHER Cancer (PARIS THOMAS) Physical Exam Vital Signs Vital Signs - First Documented 04/07/23 18:37 Temp 36.2 Pulse 89 Resp 19 B/P (MAP) 123/82 (96) Pulse Ox 100 O2 Delivery Room Air (MARILIA HUTCHINSONA Bella DO) Vital Signs Capillary Refill : (PARIS THOMAS) Height, Weight, BMI Height: 5'5.00" Weight: 138lbs. 7.0oz. [id number]; 22.00 BMI Method:Stated General Appearance: No Apparent Distress, WD/WN HEENT: PERRL/EOMI, TMs Normal, Normal ENT Inspection, Pharynx Normal Neck: Full Range of Motion, Normal Inspection, Non Tender Respiratory: Chest Non Tender, Lungs Clear, Normal Breath Sounds, No Accessory Muscle Use, No Respiratory Distress Cardiovascular: Regular Rate, Rhythm, No Edema, No Gallop, No JVD, No Murmur Gastrointestinal: Normal Bowel Sounds, No Organomegaly, No Pulsatile Mass, Non Tender Extremity: Normal Capillary Refill, Normal Inspection, Normal Range of Motion, Non Tender Neurologic/Psychiatric: Alert, Oriented x3, No Motor/Sensory Deficits, Normal Mood/Affect, integrated marketing specialist II-XII Norm as Tested Skin: Normal Color, Warm/Dry (PARIS THOMAS) Progress/Results/Core Measures Results/Orders Lab Results Laboratory Tests Test 04/07/23 18:52 04/07/23 20:45 Range/Units White Blood Count 7.8 4.3-11.0 10^3/uL Red Blood Count 4.39 3.80-5.11 10^6/uL Hemoglobin 13.3 11.5-16.0 g/dL Hematocrit 40 35-52 % Mean Corpuscular Volume 92 80-99 fL Mean Corpuscular Hemoglobin 30 25-34 pg Mean Corpuscular Hemoglobin Concent 33 32-36 g/dL Red Cell Distribution Width 13.0 10.0-14.5 % Platelet Count 270 130-400 10^3/uL Mean Platelet Volume 8.9 L 9.0-12.2 fL Immature Granulocyte % (Auto) 0 % Neutrophils (%) (Auto) 53 42-75 % Lymphocytes (%) (Auto) 38 12-44 % Monocytes (%) (Auto) 6 0-12 % Eosinophils (%) (Auto) 3 0-10 % Basophils (%) (Auto) 0 0-10 % Neutrophils # (Auto) 4.1 1.8-7.8 10^3/uL Lymphocytes # (Auto) 3.0 1.0-4.0 10^3/uL Monocytes # (Auto) 0.5 0.0-1.0 10^3/uL Eosinophils # (Auto) 0.2 0.0-0.3 10^3/uL Basophils # (Auto) 0.0 0.0-0.1 10^3/uL Immature Granulocyte # (Auto) 0.0 0.0-0.1 10^3/uL Prothrombin Time 14.1 12.2-14.7 SEC INR Comment 1.0 0.8-1.4 Activated Partial Thromboplast Time 31 24-35 SEC D-Dimer 0.31 0.00-0.49 UG/ML Sodium Level 137 135-145 MMOL/L Potassium Level 3.4 L 3.6-5.0 MMOL/L Chloride Level 104 98-107 MMOL/L Carbon Dioxide Level 22 21-32 MMOL/L Anion Gap 11 5-14 MMOL/L Blood Urea Nitrogen 15 7-18 MG/DL Creatinine 0.78 0.60-1.30 MG/DL Estimat Glomerular Filtration Rate 100 BUN/Creatinine Ratio 19 Glucose Level 98 70-105 MG/DL Calcium Level 9.3 8.5-10.1 MG/DL Corrected Calcium 9.1 8.5-10.1 MG/DL Magnesium Level 1.9 1.6-2.4 MG/DL Total Bilirubin 0.2 0.1-1.0 MG/DL Aspartate Amino Transf (AST/SGOT) 16 5-34 U/L Alanine Aminotransferase (ALT/SGPT) 13 0-55 U/L Alkaline Phosphatase 55 40-136 U/L Myoglobin 18.3 10.0-92.0 NG/ML Troponin I < 0.028 < 0.028 <0.028 NG/ML B-Type Natriuretic Peptide 10.7 <100.0 PG/ML Total Protein 7.1 6.4-8.2 GM/DL Albumin 4.2 3.2-4.5 GM/DL Lipase 32 8-78 U/L Serum Test, Qualitative NEGATIVE NEGATIVE (MICHAEL HUTCHINSON DO) My Orders Orders - MICHAEL HUTCHINSON DO Ekg Tracing (04/07/23 18:39) (MICHAEL HUTCHINSON DO) Vital Signs/I&O 04/07/23 04/07/23 04/07/23 18:37 18:37 21:36 Temp 36.2 36.2 Pulse 89 83 Resp 19 14 B/P (MAP) 123/82 (96) 101/66 Pulse Ox 100 99 O2 Delivery Room Air Room Air Room Air (MICHAEL HUTCHINSON DO) Comment Sinus rhythm, possible left atrial large minute, nonspecific T wave normality, 84 bpm, QRS duration 90 MS, QTc 382 MS (PARIS THOMAS) Departure Communication (PCP) Patient presents to ED with episode of left-sided chest pain shortness of breath yesterday lasting 1 to 2 minutes. Similar type episode today. Asymptomatic on arrival. Patient without any significant cardiac risk factors. Family cardiac history. Heart score of 1. Cardiac work-up was initiated. She did receive a full aspirin. EKG without evidence of ST elevation or depression. No arrhythmia. CBC, CMP was grossly unremarkable. Chest x-ray negative for pneumonia, pneumothorax. Due to recent travel add a D-dimer which was negative. Initial troponin negative. BNP negative. Soft abdomen. She remained asymptomatic during her stay. Due to her presentation did obtain a 2-hour delta troponin which returned negative. Reassuring lab work during today's visit. Due to low suspicion and low heart score suggest outpatient cardiac follow-up. At this time avoid any caffeine use. She denies shortness of breath with exertion. Suggest benefiting with a Holter monitor or an outpatient echo. There was no evidence of arrhythmia during her stay here. No pain with eating. She had no abdominal tenderness. If any worsening symptoms return back to ED for further evaluation. (PARIS THOMAS) Impression Primary Impression: Chest pain Disposition: 01 HOME, SELF-CARE Condition: Stable Departure-Patient Inst. Decision time for Depature: 20:44 (PARIS THOMAS) Referrals: SHALONDA MAURER MD (PCP) Primary Care Physician LILLIAN CARRENO MD Patient Instructions: Chest Pain (DC) Add. Discharge Instructions: Recommend contacting Dr. Carreno's office tomorrow to set up outpatient follow-up. If any worsening chest pain short of breath return back to ED. All discharge instructions reviewed with patient and/or family. Voiced und erstanding. ATTENDING PHYSICIAN NOTE: I WAS PHYSICALLY PRESENT ER PHYSICIAN, BUT I WAS NOT INVOLVED IN ANY DECISION MAKING OR ANY CARE OF THIS PATIENT AND I AM NOT COLLABORATING PHYSICIAN. (MICHAEL HUTCHINSON DO) PARIS THOMAS Apr 07, 2023 18:54 MICHAEL HUTCHINSON DO Apr 08, 2023 18:07
[2023-04-07] MEDS ORDERED: ASPIRIN 81 MG CHEWABLE TABLET PO ONE (19:00)
[2023-04-07 19:04] LABS: BASOPHILS % (AUTO) 0 % (0-10); EOSINOPHILS # (AUTO) 0.2 10^3/uL (0.0-0.3); EOSINOPHILS % (AUTO) 3 % (0-10); HEMATOCRIT 40 % (35-52); HEMOGLOBIN 13.3 g/dL (11.5-16.0); LYMPHOCYTES % (AUTO) 38 % (12-44); MEAN CORPUSCULAR HEMOGLOBIN 30 pg (25-34); MEAN CORPUSCULAR HGB CONC 33 g/dL (32-36); MEAN CORPUSCULAR VOLUME 92 fL (80-99); MEAN PLATELET VOLUME 8.9 fL (9.0-12.2); MONOCYTES # (AUTO) 0.5 10^3/uL (0.0-1.0); MONOCYTES % (AUTO) 6 % (0-12); NEUTROPHILS # (AUTO) 4.1 10^3/uL (1.8-7.8); NEUTROPHILS % (AUTO) 53 % (42-75); PLATELET COUNT 270 10^3/uL (130-400); WHITE BLOOD COUNT 7.8 10^3/uL (4.3-11.0)
[2023-04-07 19:16] LABS: PROTHROMBIN TIME PATIENT 14.1 SEC (12.2-14.7)
[2023-04-07 19:17] LABS: ALBUMIN 4.2 GM/DL (3.2-4.5); CHLORIDE 104 MMOL/L (98-107); POTASSIUM 3.4 MMOL/L (3.6-5.0); SODIUM 137 MMOL/L (135-145)
[2023-04-07 19:18] LABS: CALCIUM 9.3 MG/DL (8.5-10.1)
[2023-04-07 19:19] LABS: FIBRIN DEGRADATION PRODUCTS 0.31 UG/ML (0.00-0.49); GLUCOSE 98 MG/DL (70-105); TOTAL PROTEIN 7.1 GM/DL (6.4-8.2)
[2023-04-07 19:20] LABS: CARBON DIOXIDE 22 MMOL/L (21-32)
[2023-04-07 19:21] LABS: BILIRUBIN,TOTAL 0.2 MG/DL (0.1-1.0)
[2023-04-07 19:23] LABS: ALKALINE PHOSPHATASE 55 U/L (40-136); CREATININE SERUM 0.78 MG/DL (0.60-1.30); GFR ESTIMATED 100
[2023-04-07 19:24] LABS: BUN/CREATININE RATIO 19
[2023-04-07 19:26] LABS: ALANINE AMINOTRANSFERASE 13 U/L (0-55); MAGNESIUM 1.9 MG/DL (1.6-2.4)
[2023-04-07 19:27] LABS: LIPASE 32 U/L (8-78)
--- NOTE | 2023-04-07 19:44 | Diagnostic Imaging Report ---
EXAM: CHEST 1 VIEW, AP/PA ONLY INDICATION: Chest pain. COMPARISON: None. FINDINGS: Normal heart size and central pulmonary vascularity. Lungs are clear. No pleural effusion or pneumothorax. No acute osseous findings. IMPRESSION: Negative chest. Dictated by: Dictated on workstation # [id number]
[2023-04-07 21:36] VITALS: BP 101/66
== END 2023-04-07 21:39 | disposition home or self-care (01) ==
LOC: EDUNIT# 18:37 → ER 18:38
DX: R07.89 Other chest pain (principal); Z82.49 Family history of ischemic heart disease and other diseases of the circulatory system
CPT/HCPCS: 36415; 71045; 80053; 83690; 83735; 83874; 83880; 84484; 84703; 85025; 85379; 85610; 85730; 93005; 93041

== ENCOUNTER → 2023-05-15 | Outpatient (CLI) | payer OTHER | END | disposition home or self-care (01) | LOC: PREOP 05:37 | PROVIDERS: ATTEND Internal Medicine | DX: Z01.818 Encounter for other preprocedural examination (principal) ==